=== PATIENT | female | born 1975 | race Caucasian/White ===

== ENCOUNTER 2018-03-21 14:57 | Inpatient (IN) | payer SELFPAY ==
[2018-03-21] MEDS ORDERED: Albuterol Sulfate 2.5 mg/0.5 ml Neb ONE (15:32)
--- NOTE | 2018-03-21 15:44 | RAD ---
PORTABLE CHEST: Date: 03/21/18 HISTORY: Cough with chest pain. FINDINGS: Heart size is borderline for technique. Mediastinal structures are unremarkable. The lungs are clear of infiltrates. IMPRESSION: Borderline heart size. POS: [facility]
[2018-03-21 15:52] LABS: Actual Bicarbonate (HCO3a) 22.6 mEq/L (22-28); Analyzer IN Cardio ER; Base Excess (BEa) 0.6 mEq/L (-2.0 to +3.0); CO2 Tension 29.9 mmHg (35.0-45.0); Calcium, Ionized 1.14 mmol/L (1.12-1.30); Carboxyhemoglobin (COHb) 1.9 gm% (0.0-3.0); Hemoglobin (Hb) 16.1 g/dL (12.0-16.0); O2 Tension (PaO2) 68.4 mmHg (80.0-100.0); Potassium - ABG Lab 3.36 mmol/L (3.70-5.30)
[2018-03-21 15:54] LABS: ALV-art Gradient 43.955 (0-20); Puncture Site RBA
[2018-03-21] MEDS ORDERED: Dexamethasone 10 MG/ML VIAL ONE (15:59)
[2018-03-21] MEDS ORDERED: Magnesium 2 GM/50 ML BAG (IN WATER) ONE (15:59)
[2018-03-21 16:07] LABS: Bilirubin Negative (Negative); Blood, Urine Negative (Negative); Clarity CLEAR (Clear); Glucose, Urine (Dipstick) Negative (Negative); Leukocyte Negative (Negative); Nitrite Negative (Negative); Protein, Urine (Dipstick) Negative (Neg-Trace); Specific Gravity, Urine 1.006 (1.002-1.036); Urobilinogen 0.2 mg/dL (0.2-1.0); pH, Urine 6.5 (5.0-9.0)
[2018-03-21 16:20] LABS: #Basophils 0.1 thou/uL (0.0-0.2); #Eosinphils 0.1 thou/uL (0.0-0.7); #Lymphocytes 3.6 thou/uL (1.20-3.40); #Monocytes 0.7 thou/uL (0.11-0.59); #Neutrophils 9.8 thou/uL (1.40-6.50); %Basophils 0.7 % (0.0-1.0); %Eosinophils 0.8 % (0.0-10.0); %Lymphocytes 24.9 % (21.0-51.0); %Monocytes 5.2 % (0.0-10.0); %Neutrophils 68.4 % (42.0-75.0); Hemoglobin 15.3 g/dL (12.0-16.0); Mean Corpuscular HGB CONC 32.9 g/dL (32.0-36.0); Mean Corpuscular Hemoglobin 29.1 pg (27.0-31.0); Mean Corpuscular Volume 88.5 fL (78.0-98.0); Mean Platelet Volume 7.6 fL (7.4-10.4); Platelet Count 321 thou/uL (130-400); RBC Distribution Width 11.9 % (11.5-14.5); Red Blood Cell (RBC) Count 5.25 mill/uL (4.20-5.40); White Blood Cell (WBC) Count 14.3 thou/uL (4.8-10.8)
[2018-03-21 16:38] LABS: Albumin 4.2 g/dL (3.5-5.0); Anion Gap 14 mmol/L (10-20); Bilirubin, Total 0.5 mg/dL (0.2-1.2); Calcium 9.3 mg/dL (7.8-10.44); Carbon Dioxide 19 mmol/L (22-29); Chloride 106 mmol/L (98-107); Globulin 3.2 g/dL (2.4-3.5); Glucose 82 mg/dL (70-105); Potassium 3.3 mmol/L (3.5-5.1); Protein, Total 7.4 g/dL (6.0-8.3); Sodium 136 mmol/L (136-145)
[2018-03-21 16:39] LABS: Alkaline Phosphatase 76 U/L (40-150); Calc. Creatinine Clearance 0 mL/min (70-130); Estimated GFR-MDRD 68
[2018-03-21 16:40] LABS: BUN (Urea Nitrogen) 14 mg/dL (7.0-18.7)
[2018-03-21 16:41] LABS: AST (SGOT) 24 U/L (5-34)
[2018-03-21 16:42] LABS: ALT (SGPT) 38 U/L (8-55)
[2018-03-21 16:46] LABS: BHCG - Serum Negative (NEGATIVE); Pregs Control Background? CLEAR/WHITE (CLR/WHITE); Pregs Control Bar Appear? YES (CONTROL BAR)
[2018-03-21 16:49] LABS: Lipase 12 U/L (8-78)
[2018-03-21] MEDS ORDERED: hydrALAZINE 20 MG/ML VIAL SLOW IVP PRN (16:51)
[2018-03-21] MEDS ORDERED: Ondansetron PF 4 MG/2 ML Vial IVP PRN (16:51)
[2018-03-21] MEDS ORDERED: Calcium Carbonate 500 MG ChewTAB PO PRN (16:51)
[2018-03-21] MEDS ORDERED: Nitroglycerin 0.4 MG TAB (25 Tab Bottle) SL PRN (16:51)
[2018-03-21] MEDS ORDERED: cloNIDine 0.1 MG TAB PO PRN (16:51)
[2018-03-21] MEDS ORDERED: Diabetic Tussin 200 MG/10 ML UDCUP PO PRN (16:51)
[2018-03-21] MEDS ORDERED: Bisacodyl 5 MG TAB PO PRN (16:51)
[2018-03-21] MEDS ORDERED: Sodium Chloride 0.65% Nasal 44 ML BOT EA NARE PRN (16:51)
[2018-03-21] MEDS ORDERED: Senokot S 8.6-50 MG TAB PO PRN (16:51)
[2018-03-21] MEDS ORDERED: Potassium Chloride 20 MEQ TAB PO SCH (17:00)
[2018-03-21] MEDS: Mometasone/Formoterol 120 PUFF INHALER INH SCH (18:44)
[2018-03-21] MEDS ORDERED: Lisinopril 5 MG TAB PO SCH (19:00)
[2018-03-21 19:26] VITALS: BMI 42.7
--- NOTE | 2018-03-21 19:47 | HP ---
PRIMARY CARE PHYSICIAN: None. CHIEF COMPLAINT: Shortness of breath. HISTORY OF PRESENTING ILLNESS: Ms. Terrell is a pleasant 43-year-old female with past medical history significant for hypertension and maybe allergic asthma, who presented to the emergency room with above-mentioned complaint. Her history is mainly obtained by the patient herself and electronic medical records have been reviewed. Case has been discussed with admitting ER physician. Ms. Terrell reports that many years ago she had similar attack of shortness of breath and was told that she has allergic asthma. She reports that she was exposed to some construction at her work and since then has been experiencing difficulty breathing and cough. She was prescribed inhaler and prednisone a few days ago, but her symptoms have not improved. Her cough somewhat has improved, but she is getting worsening shortness of breath. Upon presentation to the ER, she was hemodynamically stable. Oxygen saturation of 97% on room air. She was found to have significant bronchospasm and wheezing and required Decadron, magnesium, nebulizers, and albuterol in the ER. She is now stabilized and will be admitted for acute asthma exacerbation leading to dyspnea. Chest x-ray is unremarkable. Blood work, including D-dimer, BNP, cardiac enzymes are unremarkable as well. PAST MEDICAL HISTORY: 1. Hypertension, currently not on any medication as the patient has no insurance. 2. Reported history of ulcerative colitis. 3. Possible history of asthma. PAST SURGICAL HISTORY: None known. ALLERGIES: DEMEROL. CURRENT MEDICATIONS: None. FAMILY HISTORY: No significant family history of premature coronary artery disease or COPD. SOCIAL HISTORY: The patient smokes half pack per day, which is down from 1 pack per day. She is smoking for the last 5 or 6 years. She works in an office. No drug or alcohol abuse. REVIEW OF SYSTEMS: A 12-point review of system was done and is negative except for those mentioned in the history and physical. LABORATORY DATA: CBC shows WBC is 14.3. D-dimer 0.32. ABGs shows pH of 7.50, pCO2 of 29, and pO2 of 68. Serum chemistries unremarkable except for potassium at 3.3. Cardiac enzyme normal. Serum test negative. Lipase normal. Urinalysis normal. Chest x-ray by my review shows no evidence of infiltrate, edema, or effusion. PHYSICAL EXAMINATION: VITAL SIGNS: Saturating 97% on room air, pulse of 95, respirations 18, and blood pressure 166/96. GENERAL: Easily short of breath upon conversation. Otherwise, in no acute distress. She is awake, alert, and oriented x3. Family is at bedside. HEENT: Mucous membrane is moist and pink. No oropharyngeal exudate or erythema. Head is normocephalic and atraumatic. Eyes equally reactive to light and accommodation. Extraocular movement intact. NECK: Supple without any lymphadenopathy, JVD, or bruit. CHEST: She has diffuse expiratory wheezes and some rhonchi on examination bilaterally. ABDOMEN: Soft, nontender, and nondistended with positive bowel sound. NEUROLOGIC: Nonfocal. SKIN: Free of any rashes or bruises. Feels warm and dry to touch. PSYCHIATRIC: Normal affect. IMPRESSION AND PLAN: 1. Acute respiratory failure. The patient most likely is having an acute asthma exacerbation, which most likely is atopic in nature. She might have some baseline chronic obstructive pulmonary disease given her tobacco abuse as well. She will be admitted and treated with IV steroids, nebulizers, Dulera, pulmonary toilet, as well as empiric antibiotics orally. We will send for a viral respiratory panel to rule out viral infection including influenza as inciting cause for her symptoms. We will request consultation with Pulmonary Medicine as the patient does not even have a primary care physician. She will be admitted to medical floor. She is stable. 2. Hypokalemia. Replace and recheck in the morning. 3. History of hypertension. We will start the patient on low-dose lisinopril, and titrate it based on her response. Avoid beta blockers due to bronchospasm. 4. Tobacco abuse. The patient has been counseled. 5. Obesity. The patient has been counseled about diet and exercise. 6. Deep venous thrombosis and gastrointestinal prophylaxis and walking program. DISPOSITION: Ms. Terrell is currently being admitted to the hospital for shortness of breath due to acute asthma exacerbation. ESTIMATED LENGTH OF STAY: At this time is at least 2 to 3 midnights. Further management will depend upon her clinical course. Job ID: [id number]
[2018-03-21] MEDS: Famotidine 20 MG TAB PO SCH (20:36)
[2018-03-21] MEDS: Acetaminophen 325 MG TAB PO PRN (22:14)
[2018-03-22 06:15] LABS: #Basophils 0.1 thou/uL (0.0-0.2); #Lymphocytes 1.1 thou/uL (1.20-3.40); #Monocytes 0.1 thou/uL (0.11-0.59); #Neutrophils 10.6 thou/uL (1.40-6.50); %Basophils 0.5 % (0.0-1.0); %Eosinophils 0.1 % (0.0-10.0); %Lymphocytes 9.5 % (21.0-51.0); %Neutrophils 88.8 % (42.0-75.0); Hemoglobin 14.6 g/dL (12.0-16.0); Mean Corpuscular HGB CONC 33.1 g/dL (32.0-36.0); Mean Corpuscular Hemoglobin 29.4 pg (27.0-31.0); Mean Platelet Volume 7.6 fL (7.4-10.4); Platelet Count 301 thou/uL (130-400); Red Blood Cell (RBC) Count 4.95 mill/uL (4.20-5.40); White Blood Cell (WBC) Count 11.9 thou/uL (4.8-10.8)
[2018-03-22 06:35] LABS: Anion Gap 17 mmol/L (10-20); BUN (Urea Nitrogen) 12 mg/dL (7.0-18.7); Calc. Creatinine Clearance 171 mL/min (70-130); Calcium 9.1 mg/dL (7.8-10.44); Carbon Dioxide 19 mmol/L (22-29); Chloride 107 mmol/L (98-107); Estimated GFR-MDRD 78; Glucose 163 mg/dL (70-105); Potassium 3.8 mmol/L (3.5-5.1); Sodium 139 mmol/L (136-145)
[2018-03-22] MEDS: Mometasone/Formoterol 120 PUFF INHALER INH SCH ×2 (06:54→21:21)
[2018-03-22] MEDS ORDERED: Spiriva 18 MCG CAP (Box of 5 Caps) INH SCH (07:00)
[2018-03-22] MEDS: Benzonatate 100 MG CAP PO PRN (08:42)
[2018-03-22] MEDS: Famotidine 20 MG TAB PO SCH ×2 (08:42→20:27)
[2018-03-22] MEDS: Acetaminophen 325 MG TAB PO PRN ×2 (08:42→17:56)
[2018-03-22] MEDS: Lisinopril 5 MG TAB PO SCH (08:42)
[2018-03-22] MEDS: Enoxaparin Sodium 40 MG/0.4 ML SYRINGE SC SCH (08:44)
[2018-03-22] MEDS ORDERED: Magnesium 2 GM/50 ML 2 GM in Premix Bag 1 BAG IVPB SCH (09:45)
--- NOTE | 2018-03-22 11:00 | CON ---
DATE OF CONSULTATION: HISTORY OF PRESENT ILLNESS: A 43-year-old obese female, who presented to the hospital yesterday with a week history of cough, congestion, shortness of breath, and wheezing, responsive to home medication. She went to an urgent care on Thursday. Apparently, she was given a rescue inhaler and prednisone. She has smoked up to a pack a day for most of her life. She has cut back to half pack a day. She says last week she started having some coughing and wheezing episodes after she was exposed to some smoke, took some [id number] cough medication without much relief into the Urgent Care, where she was given breathing treatment and rescue inhaler without any improvement. She is now being admitted. PAST MEDICAL HISTORY: Apparently pertinent for hypertension, colitis. PREVIOUS SURGERIES: Included previous hysterectomy. HOME MEDICATIONS: Rescue inhaler and prednisone. ALLERGIES: DEMEROL. SOCIAL HISTORY: Alcohol, none. Tobacco, as noted. service liaison representative. PHYSICAL EXAMINATION: VITAL SIGNS: Sats are 95% on 2 L, blood pressure 111/73, pulse 80, and temperature 97. CHEST: Reveal both inspiratory and expiratory wheezing. CARDIAC: Normal S1 and S2. No gallops. ABDOMEN: Soft without masses. LABORATORY DATA: White count 11,000. Lytes are normal. The pO2 was 68, pCO2 of 29, pH of 7.50 on room air. Chest x-ray was unremarkable. IMPRESSION: Bronchial asthma exacerbation, tobacco abuse, and obesity. She was scheduled neb treatment, steroids. I have added Dulera and magnesium. Consider pulmonary function test prior to discharge. She refrained from smoking. Consultation note, 70 minutes, 50% direct patient care. Job ID: [id number]
--- NOTE | 2018-03-22 12:41 | PDOC.PN ---
- Subjective Encounter Start Date: 03/22/18 Encounter Start Time: 09:20 Pt seen for followup re; asthma exacerbation. Feels slightly better. - Objective Vital Signs & Weight: Vital Signs (12 hours) Temp Pulse Resp BP BP Pulse Ox 03/22/18 08:49 95 03/22/18 08:42 80 111/73 03/22/18 08:37 95 03/22/18 07:42 97.9 F 80 20 111/73 91 L 03/22/18 06:57 94 L 03/22/18 06:54 89 16 94 L 03/22/18 05:18 81 16 93 L 03/22/18 04:44 98.1 F 80 21 H 138/64 92 L 03/22/18 01:22 85 16 93 L 03/22/18 00:52 98 F 97 24 H 115/71 93 L Weight Weight 264 lb 9.6 oz I&O: 03/21/18 03/22/18 03/23/18 06:59 06:59 06:59 Intake Total 300 Balance 300 Result Diagrams: 03/22/18 05:40 03/22/18 05:40 Phys Exam - Physical Examination Morbid obesity HEENT: moist MMs, sclera anicteric, oral pharynx no lesions, 2+ tonsils Neck: no nodes, no JVD, supple, full ROM Respiratory: clear to auscultation bilateral Diminished air entry [place] Cardiovascular: RRR, no rub S1, s2 Gastrointestinal: soft, non-tender, no distention, positive bowel sounds Neurological: moves all 4 limbs Psychiatric: normal affect, A&O x 3 Dx/Plan (1) Asthma exacerbation Code(s): J45.901 - UNSPECIFIED ASTHMA WITH (ACUTE) EXACERBATION Status: Acute Comment: Improving with oxygen, steroids, bronchodilators and antibiotics (2) Tobacco abuse Code(s): Z72.0 - TOBACCO USE Status: Chronic Comment: counseled re: tobacco cessation - Plan * . Review of Systems - Review of Systems Constitutional: negative: fever, chills, sweats, weakness, malaise Respiratory: Cough, Dry, Wheezing. negative: Shortness of Breath, Hemoptysis, SOB with Excertion, Pleuritic Pain, Sputum Cardiovascular: negative: chest pain, palpitations, orthopnea, paroxysmal nocturnal dyspnea, edema, light headedness Gastrointestinal: negative: Nausea, Vomiting, Abdominal Pain, Diarrhea, Constipation, Melena, Hematochezia Genitourinary: negative: Dysuria, Frequency, Incontinence, Hematuria, Retention Skin: negative: Rash, Lesions, Noble, Bruising - Medications/Allergies Allergies/Adverse Reactions: Allergies Allergy/AdvReac Type Severity Reaction Status Date / Time meperidine [From Demerol] Allergy Verified 03/21/18 18:08 Medications: Current Medications Acetaminophen (Tylenol) 650 mg PO Q4H PRN PRN Reason: Headache/Fever/Mild Pain (1-3) Last Admin: 03/22/18 08:42 Dose: 650 mg Albuterol/Ipratropium (Duoneb) 3 ml NEB [id number] PRN PRN Reason: SOB &/or Wheezing Last Admin: 03/22/18 05:18 Dose: 3 ml Albuterol/Ipratropium (Duoneb) 3 ml NEB [id number] [facility] Last Admin: 03/22/18 06:54 Dose: 3 ml Benzonatate (Tessalon) 100 mg PO Q6H PRN PRN Reason: Cough Last Admin: 03/22/18 08:42 Dose: 100 mg Bisacodyl (Dulcolax) 10 mg PO DAILYPRN PRN PRN Reason: Constipation Calcium Carbonate (Tums) 1,000 mg PO Q4H PRN PRN Reason: Heartburn or Indigestion Clonidine (Catapres) 0.1 mg PO Q4H PRN PRN Reason: SBP > 160____ Enoxaparin Sodium (Lovenox) 40 mg SC 0900 [facility] Last Admin: 03/22/18 08:44 Dose: Not Given Famotidine (Pepcid) 20 mg PO BID [facility] Last Admin: 03/22/18 08:42 Dose: 20 mg Guaifenesin (Robitussin Sf) 200 mg PO Q4H PRN PRN Reason: Cough Hydralazine HCl (Apresoline) 10 mg SLOW IVP Q4H PRN PRN Reason: SBP > 180 and HR < 70 Levofloxacin (Levaquin) 750 mg PO DAILY [facility] Last Admin: 03/22/18 08:42 Dose: 750 mg Lisinopril (Zestril) 5 mg PO DAILY [facility] Last Admin: 03/22/18 08:42 Dose: Not Given Methylprednisolone Sodium Succinate (Solu-Medrol) 40 mg IVP Q6HR [facility] Last Admin: 03/22/18 11:28 Dose: 40 mg Mometasone Furoate/Formoterol Fumar (Dulera 200 Mcg/5 Mcg Inhaler) 2 puff INH BID-RT [facility] Nitroglycerin (Nitrostat) 0.4 mg SL Q5MIN PRN PRN Reason: Chest Pain Ondansetron HCl (Zofran) 4 mg IVP Q6H PRN PRN Reason: Nausea/Vomiting Senna/Docusate Sodium (Senokot S) 2 tab PO BID PRN PRN Reason: Constipation Sodium Chloride ([place] Nasal [place] 0.65%) 0 ml EA NARE QIDPRN PRN PRN Reason: Nasal Congestion Sodium Chloride (Flush - Normal Saline) 10 ml IVF Q12HR [facility] Last Admin: 03/22/18 08:44 Dose: 10 ml Sodium Chloride (Flush - Normal Saline) 10 ml IVF PRN PRN PRN Reason: Saline Flush
[2018-03-22] MEDS ORDERED: Pseudoephedrine HCl 30 MG TAB PO SCH (21:30)
[2018-03-22] MEDS ORDERED: Ibuprofen 200 MG TAB PO SCH (21:30)
[2018-03-23] MEDS ORDERED: Ibuprofen 200 MG TAB PO SCH (05:45)
[2018-03-23] MEDS: Mometasone/Formoterol 120 PUFF INHALER INH SCH ×2 (07:51→18:01)
[2018-03-23] MEDS: Lisinopril 5 MG TAB PO SCH (08:22)
[2018-03-23] MEDS: Enoxaparin Sodium 40 MG/0.4 ML SYRINGE SC SCH (08:23)
[2018-03-23] MEDS: Famotidine 20 MG TAB PO SCH ×2 (08:23→19:45)
[2018-03-23 09:16] LABS: Hemoglobin 14.8 g/dL (12.0-16.0); Mean Corpuscular HGB CONC 31.9 g/dL (32.0-36.0); Mean Corpuscular Hemoglobin 28.3 pg (27.0-31.0); Mean Corpuscular Volume 88.7 fL (78.0-98.0); Mean Platelet Volume 7.6 fL (7.4-10.4); Platelet Count 331 thou/uL (130-400); RBC Distribution Width 12.1 % (11.5-14.5); Red Blood Cell (RBC) Count 5.21 mill/uL (4.20-5.40); White Blood Cell (WBC) Count 21.7 thou/uL (4.8-10.8)
[2018-03-23 09:28] LABS: Anion Gap 14 mmol/L (10-20); BUN (Urea Nitrogen) 15 mg/dL (7.0-18.7); Calc. Creatinine Clearance 165 mL/min (70-130); Calcium 9.2 mg/dL (7.8-10.44); Carbon Dioxide 21 mmol/L (22-29); Chloride 106 mmol/L (98-107); Estimated GFR-MDRD 74; Glucose 141 mg/dL (70-105); Potassium 4.1 mmol/L (3.5-5.1); Sodium 137 mmol/L (136-145)
--- NOTE | 2018-03-23 09:37 | PRG ---
DATE OF SERVICE: 03/23/2018 SUBJECTIVE: Kanchan Terrell is a 43-year-old female. This morning, she is better. She is still coughing. She is still wheezing. She is eager to go home. OBJECTIVE: VITAL SIGNS: Blood pressure is 110/74, pulse 68, temperature 98, and respirations 20. CHEST: Bilateral inspiratory and expiratory wheezing. CARDIAC: Normal S1 and S2. No gallops. ABDOMEN: No masses. IMPRESSION: 1. Asthma exacerbation. 2. Borderline hypertension. PLAN: I would discontinue the Zestril. She has a cough. It is difficult to assess the cause of her cough. Switch over to oral prednisone. Hopefully, she is stable. She may be discharged home tomorrow on tapering doses of prednisone. To note, her sputum is relatively clear. Continue Dulera, neb treatments, and supportive care. Job ID: [id number]
[2018-03-23] MEDS: predniSONE 20 MG TAB PO SCH ×2 (10:42→19:45)
[2018-03-23 10:58] LABS: Band 5 % (5-11); Lymphocytes 6 % (21-51); MDiff Complete? YES; Monocytes 1 % (0-10); Neutrophil 86 % (42-75); Promyelocytes 1 % (0-0); RBC Morphology Normal; Reactive Lymphocytes 1 % (0-10)
[2018-03-23] MEDS: Benzonatate 100 MG CAP PO PRN (12:36)
[2018-03-23] MEDS: traMADol HCl 50 MG TAB PO PRN ×2 (12:36→23:28)
--- NOTE | 2018-03-23 14:29 | PDOC.PN ---
- Subjective Encounter Start Date: 03/23/18 Encounter Start Time: 09:20 Pt seen for followup re: asthma exacerbation. Feels slightly better. - Objective MAR Reviewed: Yes Vital Signs & Weight: Vital Signs (12 hours) Temp Pulse Resp BP BP BP BP 03/23/18 14:02 94 119/78 03/23/18 14:01 89 123/83 03/23/18 14:00 91 03/23/18 12:19 88 20 03/23/18 12:00 98.9 F 88 20 98/65 03/23/18 08:22 68 110/74 03/23/18 08:13 03/23/18 08:00 98.0 F 68 20 110/74 03/23/18 07:54 03/23/18 07:51 68 20 03/23/18 05:08 72 20 03/23/18 04:50 97.9 F 62 18 110/74 BP Pulse Ox 03/23/18 14:02 03/23/18 14:01 03/23/18 14:00 111/71 03/23/18 12:19 97 03/23/18 12:00 97 03/23/18 08:22 03/23/18 08:13 96 03/23/18 08:00 96 03/23/18 07:54 96 03/23/18 07:51 96 03/23/18 05:08 94 L 03/23/18 04:50 94 L Weight Admit Weight 264 lb 9.6 oz Weight 264 lb 9.6 oz I&O: 03/22/18 03/23/18 03/24/18 06:59 06:59 06:59 Intake Total 300 1100 Balance 300 1100 Result Diagrams: 03/23/18 08:57 03/23/18 08:57 Additional Labs: Labs reviewed by me Phys Exam - Physical Examination Constitutional: NAD HEENT: moist MMs Neck: supple Respiratory: wheezing present Cardiovascular: RRR Gastrointestinal: soft Neurological: moves all 4 limbs Psychiatric: normal affect Dx/Plan (1) Asthma exacerbation Code(s): J45.901 - UNSPECIFIED ASTHMA WITH (ACUTE) EXACERBATION Status: Acute Comment: Improving, continue oxygen, steroids, bronchodilators and antibiotics (2) Rhinovirus infection Code(s): B34.8 - OTHER VIRAL INFECTIONS OF UNSPECIFIED SITE Status: Acute Comment: symptomatic management (3) Tobacco abuse Code(s): Z72.0 - TOBACCO USE Status: Chronic Comment: counseled re: tobacco cessation - Plan * . Review of Systems - Review of Systems Respiratory: Cough, SOB with Excertion, Pleuritic Pain. negative: Dry, Shortness of Breath, Hemoptysis, Sputum, Wheezing Cardiovascular: negative: chest pain, palpitations, orthopnea, paroxysmal nocturnal dyspnea, edema, light headedness - Medications/Allergies Allergies/Adverse Reactions: Allergies Allergy/AdvReac Type Severity Reaction Status Date / Time meperidine [From Demerol] Allergy Verified 03/21/18 18:08 Medications: Current Medications Acetaminophen (Tylenol) 650 mg PO Q4H PRN PRN Reason: Headache/Fever/Mild Pain (1-3) Last Admin: 03/22/18 17:56 Dose: 650 mg Albuterol/Ipratropium (Duoneb) 3 ml NEB [id number] PRN PRN Reason: SOB &/or Wheezing Last Admin: 03/23/18 05:08 Dose: 3 ml Albuterol/Ipratropium (Duoneb) 3 ml NEB [id number] [facility] Last Admin: 03/23/18 12:19 Dose: 3 ml Benzonatate (Tessalon) 100 mg PO Q6H PRN PRN Reason: Cough Last Admin: 03/23/18 12:36 Dose: 100 mg Bisacodyl (Dulcolax) 10 mg PO DAILYPRN PRN PRN Reason: Constipation Calcium Carbonate (Tums) 1,000 mg PO Q4H PRN PRN Reason: Heartburn or Indigestion Clonidine (Catapres) 0.1 mg PO Q4H PRN PRN Reason: SBP > 160____ Enoxaparin Sodium (Lovenox) 40 mg SC 0900 [facility] Last Admin: 03/23/18 08:23 Dose: Not Given Famotidine (Pepcid) 20 mg PO BID [facility] Last Admin: 03/23/18 08:23 Dose: 20 mg Guaifenesin (Robitussin Sf) 200 mg PO Q4H PRN PRN Reason: Cough Hydralazine HCl (Apresoline) 10 mg SLOW IVP Q4H PRN PRN Reason: SBP > 180 and HR < 70 Levofloxacin (Levaquin) 750 mg PO DAILY [facility] Last Admin: 03/23/18 08:22 Dose: 750 mg Mometasone Furoate/Formoterol Fumar (Dulera 200 Mcg/5 Mcg Inhaler) 2 puff INH BID-RT [facility] Last Admin: 03/23/18 07:51 Dose: 2 puff Nitroglycerin (Nitrostat) 0.4 mg SL Q5MIN PRN PRN Reason: Chest Pain Ondansetron HCl (Zofran) 4 mg IVP Q6H PRN PRN Reason: Nausea/Vomiting Prednisone (Prednisone) 20 mg PO BID [facility] Last Admin: 03/23/18 10:42 Dose: 20 mg Senna/Docusate Sodium (Senokot S) 2 tab PO BID PRN PRN Reason: Constipation Sodium Chloride (Pet[place] Nasal [place] 0.65%) 0 ml EA NARE QIDPRN PRN PRN Reason: Nasal Congestion Sodium Chloride (Flush - Normal Saline) 10 ml IVF Q12HR [facility] Last Admin: 03/23/18 08:23 Dose: 10 ml Sodium Chloride (Flush - Normal Saline) 10 ml IVF PRN PRN PRN Reason: Saline Flush Tramadol HCl (Ultram) 50 mg PO Q6H PRN PRN Reason: Moderate to Severe Pain (6-10) Last Admin: 03/23/18 12:36 Dose: 50 mg
[2018-03-23] MEDS ORDERED: Meclizine HCl 25 MG TAB PO SCH (14:45)
[2018-03-24] MEDS: Mometasone/Formoterol 120 PUFF INHALER INH SCH (06:18)
[2018-03-24 08:10] LABS: #Monocytes 0.8 thou/uL (0.11-0.59); #Neutrophils 11.2 thou/uL (1.40-6.50); %Basophils 0.1 % (0.0-1.0); %Eosinophils 0.2 % (0.0-10.0); %Lymphocytes 14.5 % (21.0-51.0); %Monocytes 5.3 % (0.0-10.0); %Neutrophils 79.8 % (42.0-75.0); Hemoglobin 14.5 g/dL (12.0-16.0); Mean Corpuscular HGB CONC 32.2 g/dL (32.0-36.0); Mean Corpuscular Hemoglobin 28.7 pg (27.0-31.0); Mean Corpuscular Volume 89.2 fL (78.0-98.0); Mean Platelet Volume 7.6 fL (7.4-10.4); Platelet Count 308 thou/uL (130-400); RBC Distribution Width 12.1 % (11.5-14.5); Red Blood Cell (RBC) Count 5.05 mill/uL (4.20-5.40); White Blood Cell (WBC) Count 14.1 thou/uL (4.8-10.8)
[2018-03-24] MEDS: Famotidine 20 MG TAB PO SCH (08:13)
[2018-03-24] MEDS: predniSONE 20 MG TAB PO SCH (08:13)
[2018-03-24] MEDS: Enoxaparin Sodium 40 MG/0.4 ML SYRINGE SC SCH (08:14)
[2018-03-24 08:31] LABS: Anion Gap 14 mmol/L (10-20); BUN (Urea Nitrogen) 16 mg/dL (7.0-18.7); Calc. Creatinine Clearance 156 mL/min (70-130); Calcium 9.1 mg/dL (7.8-10.44); Carbon Dioxide 21 mmol/L (22-29); Chloride 106 mmol/L (98-107); Estimated GFR-MDRD 70; Glucose 116 mg/dL (70-105); Sodium 137 mmol/L (136-145)
--- NOTE | 2018-03-24 09:26 | PRG ---
DATE OF SERVICE: 03/24/2018 SUBJECTIVE: This morning, she is better. She is less short of breath, less cough. She said yesterday her blood pressure dropper ,became dizzy , this morning is 112/73. OBJECTIVE: VITAL SIGNS: Sats are 92% on room air, respiratory rate 18, temperature 97, pulse 67. CHEST: Minimal inspiratory wheezing. CARDIAC: Normal S1 and S2. No gallops. ABDOMEN: No masses. LABORATORY DATA: White count 14,000, H and H are 14 and 44, platelet count is normal. Lytes are normal. All cultures are so far negative. IMPRESSION: Asthmatic bronchitis. All cultures negative. She is going to be discharged home. I have given a course of prednisone and Symbicort, to be seen in the office in 2 weeks. PFT in the office at that time. Encouraged to lose weight. Job ID: [id number] MTDD
[2018-03-24 12:51] VITALS: BP 116/77; TEMP 98
--- NOTE | 2018-03-24 23:54 | DIS ---
DATE OF ADMISSION: 03/21/2018 DATE OF DISCHARGE: 03/24/2018 PRIMARY CARE PROVIDER: None. DISCHARGE DIAGNOSES: 1. Asthma exacerbation. 2. Acute respiratory failure. 3. Hypokalemia. 4. Virus infection. CONDITION OF PATIENT ON THE DAY OF DISCHARGE: Stable. I assessed Ms. Terrell on the day of discharge. She denies any chest pain or shortness of breath. Vital signs are stable. S1 and S2 are heard, regular. Lungs are clear to auscultation bilaterally. CONSULTATIONS DURING THIS HOSPITALIZATION: Pulmonology, Dr. Anton. HOSPITAL COURSE: Ms. Terrell is a pleasant 43-year-old lady, who was admitted to [facility] on March 21, 2018, for acute respiratory failure secondary to acute asthma exacerbation. Please refer to Dr. Jett's history and physical note dated March 21, 2018, for further details. She improved with oxygen, steroids, bronchodilators, and antibiotics. She was seen by Pulmonology Service. There was no evidence of infection. She improved clinically. Respiratory viral panel was positive for rhinovirus. She received a prescription for steroids and Symbicort from Pulmonology Service. She is being discharged home in a stable condition. She was advised to follow up with Pulmonology Service in 2 weeks time. She will have pulmonary function testing in the office at that time. She will also increase to lose weight. DISCHARGE MEDICATIONS: Oral steroid taper and Symbicort. DISCHARGE DESTINATION: Home. TIME SPENT: Total amount of time spent coordinating this discharge: 32 minutes. Job ID: [id number]
== END 2018-03-24 13:51 | disposition home or self-care (01) | DRG 202 ==
LOC: ERS 14:57 → T4-B 16:51
PROVIDERS: ADMIT Internal Medicine; ATTEND Internal Medicine
DX: J45.901 Unspecified asthma with (acute) exacerbation (principal); J96.00 Acute respiratory failure, unspecified whether with hypoxia or hypercapnia; B34.8 Other viral infections of unspecified site; Z72.0 Tobacco use
CPT/HCPCS: 36415; 71045; 80048; 80053; 81003; 82805; 83605; 83690; 84484; 84703; 85025; 85379; 87040; 87633; 87798; 93005; 94640; 94644; 94664; 96365; 96367; 96375; J1100; J1650; J1956; J2920; J3475; J7506; J7611; J7620

== ENCOUNTER 2022-04-28 14:23 | Emergency (ER) | payer OTHER, SELFPAY ==
[2022-04-28] MEDS ORDERED: predniSONE 20 MG TAB ONE (16:45)
[2022-04-28] MEDS ORDERED: Ketorolac Tromethamine 30 MG/ML VIAL ONE (16:45)
[2022-04-28] MEDS ORDERED: Cyclobenzaprine 10 MG TAB ONE (16:45)
== END 2022-04-28 17:05 | disposition home or self-care (01) ==
LOC: ERS 14:23
DX: S39.012A Strain of muscle, fascia and tendon of lower back, initial encounter (principal); I10 Essential (primary) hypertension; W20.8XXA Other cause of strike by thrown, projected or falling object, initial encounter; Z79.899 Other long term (current) drug therapy
CPT/HCPCS: 72100; 96372; J1885; J7512